=== PATIENT | male | born 1945 | race Two or more races ===

== ENCOUNTER 2018-10-06 06:03 | Day surgery (SDC) | payer OTHER ==
[~2018-10-06] VITALS: Ht 172.7 cm; Wt 106.1 kg
[~2018-10-06 06:03] MED LIST: BENADRYL25 MG PO; FISH OIL 1,0001 EAC1 PO; NIFE60ER PO; PREG150 PO; SIMV40 PO; THERA1 EACH PO; ZESTORETIC 20-251 EA PO
--- NOTE | 2018-10-06 06:35 | NUR ---
Ambulatory in Day Surgery History, Chart, Medications and Allergies reviewed before start of procedure.Lungs clear T/O to Auscultation. Patient States Post-Procedure ride home has been arranged.
--- NOTE | 2018-10-06 08:25 | NUR ---
10/06/18 0825 Dennis Kemp OLVERA CATH PLACED PER OSKAR MYERS
== END 2018-10-06 14:21 | disposition home or self-care (01) ==
LOC: ORSCMMR 06:03 → ORD 07:30 → ORSCMMR 14:21
PROVIDERS: Surgery
PROC: 0YU64JZ Supplement Left Inguinal Region with Synthetic Substitute, Percutaneous Endoscopic Approach (ICD-10-PCS; principal; 2018-10-06 07:30)
PROC: 8E0W4CZ Robotic Assisted Procedure of Trunk Region, Percutaneous Endoscopic Approach (ICD-10-PCS; principal; 2018-10-06 07:30)
DX: K40.30 Unilateral inguinal hernia, with obstruction, without gangrene, not specified as recurrent (principal); D17.6 Benign lipomatous neoplasm of spermatic cord; E66.01 Morbid (severe) obesity due to excess calories; Z68.36 Body mass index [BMI] 36.0-36.9, adult; E78.5 Hyperlipidemia, unspecified; I10 Essential (primary) hypertension; Z79.899 Other long term (current) drug therapy
CPT/HCPCS: 49650; S2900; 88304; A9270-GY; C1781; J0690; J1100; J1885; J2250; J2405; J2704; J3010; J7120

== ENCOUNTER 2024-12-12 19:06 | Inpatient (IN) | payer OTHER, MEDICARE ==
[~2024-12-12] VITALS: Ht 175.3 cm; Wt 106.2 kg
[2024-12-12] MEDS ORDERED: Acetaminophen 500 MG Tab PO ONE (19:20)
[2024-12-12 19:38] LABS: Source, Urine Clean Catch
[2024-12-12 19:41] LABS: Appearance, Urine Hazy (Clear); Bilirubin, Urine Neg (Neg); Blood, Urine 1+ (Neg); Color, Urine Yellow (P-Yellow); Glucose Qualitative, Urine 4+ (Neg); Ketones, Urine Neg (Neg); Leukocyte Esterase, Urine 3+ (Neg); Nitrite, Urine Neg (Neg); Protein, Urine 1+ (Neg); Urobilinogen, Urine NORM (Normal); pH, Urine 6.5 (5.0-8.0)
[2024-12-12 19:41] LABS: BASOPHILS PERCENT AUTO 1 % (0-2); EOSINOPHILS ABSOLUTE AUTO 0.03 K/mm3 (0.00-0.68); EOSINOPHILS PERCENT AUTO 0 % (0-6); Hematocrit 33.6 % (37.0-53.0); Hemoglobin 10.9 g/dL (13.5-17.5); IMMATURE GRAN ABSOLUTE AUTO 0.18 K/mm3 (0.00-0.10); IMMATURE GRAN PERCENT AUTO 1 % (0-1); LYMPHOCYTES ABSOLUTE AUTO 0.47 K/mm3 (0.84-5.20); LYMPHOCYTES PERCENT AUTO 3 % (21-46); MONOCYTES PERCENT AUTO 4 % (4-13); Mean Corpuscular HGB 30.4 pg (26.0-34.0); Mean Corpuscular HGB Conc 32.4 g/dL (31.5-36.5); Mean Corpuscular Volume 94 fL (80-100); Mean Platelet Volume 9.3 fL (9.1-12.4); NEUTROPHILS ABSOLUTE AUTO 16.42 K/mm3 (1.96-9.15); NEUTROPHILS PERCENT AUTO 91 % (41-73); Platelet Count 567 K/mm3 (150-400); RDW Coefficient Variation 15.2 % (11.7-14.2); RDW Standard Deviation 52.8 fL (35.1-46.3); Red Blood Cell Count 3.58 M/mm3 (4.30-5.90)
[2024-12-12 19:56] LABS: Bacteria Many /hpf; Squamous Epithelial Cells Rare /hpf (Few); White Blood Cells, Urine 50-100 /hpf (0-5)
[2024-12-12 19:59] LABS: Albumin, Blood 3.1 g/dL (3.4-5.0); Albumin/Globulin Ratio 0.8 (0.8-1.8); Bilirubin, Total 0.7 mg/dL (0.1-1.0); Bun/Creatinine Ratio 16.5 (12.0-20.0); Calcium, Blood 9.2 mg/dL (8.5-10.1); Creatinine, Blood 1.09 mg/dL (0.60-1.20); Potassium, Blood 4.3 mmol/L (3.5-5.5); Total Protein, Blood 7.1 g/dL (6.4-8.2)
[2024-12-12 20:12] LABS: Influenza A, PCR NEGATIVE (NEGATIVE); Influenza B, PCR NEGATIVE (NEGATIVE); Resp Syncytial Virus, PCR NEGATIVE (NEGATIVE); SARS-Cov-2 (COVID-19) PCR, MMC NEGATIVE (NEGATIVE)
[2024-12-12] MEDS ORDERED: CefTRIAXone Sodium 1,000 MG in NS 100 ML IV ONE (20:30)
[2024-12-12] MEDS ORDERED: OxyCODONE HCL 5 MG TAB PO PRN (21:40)
[2024-12-12] MEDS ORDERED: Acetaminophen 325 MG TABLET PO PRN (21:40)
[2024-12-12] MEDS ORDERED: Polyethylene Glycol 3350 17 gm PO PRN (21:45)
--- NOTE | 2024-12-12 22:50 | NUR ---
NEW ADMIT. PATIENT ADMITTED TO PCU8 FROM ER 11, REPORT RECEIVED FROM ER NURSE-REPORTS OF HYPOTENSIVE BLOOD PRESSURES WITH MAP <65- DOCTOR AWARE AND DOES NOT WANT TO TREAT, IN REPORT FROM ER NURSE FLUIDS WERE NOT STARTED OR ORDERED D/T PATIENTS HISTORY OF CHF. PATIENT ARRIVED TO ROOM IN [facility] AND [facility]. PATIENT IS ALERT AND ORIENTED. PATIENT TRANSFERED FROM [facility] TO HOSPITAL BED-THIS WAS A TASK FOR THE PATIENT IN RELATION TO HIS RECENT BACK SURGERY. AMIODARONE UP WITH PATIENT, NOT STARTED AND NOT TO BE STARTED UNLESS PATIENTS HEART RATE IS SUSTAINING >120. PATIENT HAS GLASSES AND DENTURES. PATIENT SETTLED INTO BED AND ADMISSION PROCESS STARTED.
[2024-12-12 23:00] VITALS: BP 97/64
[2024-12-12] MEDS ORDERED: ALEN70 PO (23:39)
[2024-12-12] MEDS ORDERED: ELIQUIS5 M3 PO (23:40)
[2024-12-12] MEDS ORDERED: THERA-D2000 UNIT PO (23:41)
[2024-12-12] MEDS ORDERED: Calcium Carbon500 MG PO (23:41)
[2024-12-12] MEDS ORDERED: DICLOFENAC SOD100 GM TOP (23:43)
[2024-12-12] MEDS ORDERED: JARDIANCE10 MG PO (23:44)
[2024-12-12] MEDS ORDERED: Flonase 0.05% N16 GM (23:45)
[2024-12-12] MEDS ORDERED: FURO20 PO (23:49)
[2024-12-12] MEDS ORDERED: LIDO700A20 TOP (23:49)
[2024-12-12] MEDS ORDERED: LISI20 PO (23:50)
[2024-12-12] MEDS ORDERED: Robaxin750 MG PO (23:51)
[2024-12-12] MEDS ORDERED: METO100ER PO (23:52)
[2024-12-12] MEDS ORDERED: MULTI-VITAMIN1 EAC2 PO (23:53)
[2024-12-12] MEDS ORDERED: PREG150 PO (23:54)
[2024-12-12] MEDS ORDERED: SPIR25 PO (23:55)
[2024-12-13] VITALS (9 sets, daily range): BP systolic 88–117; BP diastolic 60–82
[2024-12-13 03:44] LABS: Base Excess Venous 1.7 mmol/L; Bicarbonate Venous 25.2 mmol/L (24.0-30.0); PCO2 Venous 35.7 mmHg (38-42); pH Blood Venous 7.46 (7.34-7.37)
[2024-12-13 04:04] LABS: Hematocrit 31.9 % (37.0-53.0); Hemoglobin 10.5 g/dL (13.5-17.5); Mean Corpuscular HGB Conc 32.9 g/dL (31.5-36.5); Mean Corpuscular Volume 94 fL (80-100); Mean Platelet Volume 9.6 fL (9.1-12.4); Platelet Count 531 K/mm3 (150-400); RDW Coefficient Variation 15.5 % (11.7-14.2); Red Blood Cell Count 3.39 M/mm3 (4.30-5.90); White Blood Cell Count 24.77 K/mm3 (4.00-11.30)
--- NOTE | 2024-12-13 04:23 | NUR ---
SHIFT SUMMARY. PATIENT IS ALERT AND ORIENTED X4 WITH SOME CONFUSION-PATIENT IS POOR HISTORIAN. PATIENTS IS TO BRING IN HOME CPAP MACHINE AND MEDICATION LIST TODAY 12/13/24, [facility]. PATIENT IS USING THE URINAL AT BEDSIDE, CONTINENT OF BOWEL MOVEMENTS PER PATIENT. PATIENTS GAIT IS UNSTEADY R/T RECENT BACK SURGERY. PATIENT IS ABLE TO STAND AT THE SIDE OF THE BED TO USE THE URINAL, 1P ASSIST. PATIENTS HEART RATE HAS BEEN ELEVATED BETWEEN 90'S-110'S TOUCHING INTO THE 140'S BUT NOT SUSTAINING >120BPM. AMIODARONE GTT TO BE STARTED FOR HEART RATE SUSTAINING >120. PATIENT FEBRILE THIS SHIFT-TYLENOL GIVEN PER ORDERS WITH IMPROVEMENT TO TEMPERATURE. PATIENT DID NOT SLEEP MUCH THIS SHIFT. BED IS LOCKED IN THE LOWEST POSITION WITH CALL LIGHT IN REACH. CARE IS ONGOING.
--- NOTE | 2024-12-13 05:03 | NUR ---
PATIENTS HEART RATE SUSTAINING >120 TOUCHED INTO THE HIGH 170'S AMIODARONE GTT STARTED PER ORDERS. PATIENT TOLERATING WELL AT THIS TIME. BLOOD PRESSURE IS SOFT.
[2024-12-13 05:08] LABS: Albumin, Blood 2.8 g/dL (3.4-5.0); Anion Gap 10 mmol/L (3-11); Blood Urea Nitrogen 17 mg/dL (8-24); Bun/Creatinine Ratio 15.5 (12.0-20.0); CO2, Blood 24 mmol/L (21-32); Calcium, Blood 8.5 mg/dL (8.5-10.1); Chloride, Blood 102 mmol/L (98-108); Ferritin, Serum 69 ng/mL (26-388); Glomerular Filtration Rate 69 (60-); Glucose, Blood 112 mg/dL (70-99); Iron Serum 14 ug/dL (65-175); Magnesium, Blood 2.1 mg/dL (1.6-2.4); Percent Saturation 5.7 % (20.0-50.0); Phosphorus, Blood 2.8 mg/dL (2.5-4.9); Potassium, Blood 4.3 mmol/L (3.5-5.5); Sodium, Blood 132 mmol/L (136-145); Total Iron Binding Capacity 247 ug/dL (250-450)
[2024-12-13] MEDS ORDERED: Apixaban 5 MG Tab PO SCH (09:00)
[2024-12-13] MEDS ORDERED: Lactobacil 2-S.Thermo-Bifido 1 1 Cap PO SCH (09:00)
[2024-12-13] MEDS ORDERED: CYCL10 PO (09:56)
[2024-12-13] MEDS ORDERED: OXYC5 PO (09:57)
[2024-12-13] MEDS ORDERED: Vancomycin HCL 1,500 MG in NS 250 ML IV ONE (16:25)
[2024-12-13] MEDS ORDERED: Lactated Ringer's 1,000 ML IV SCH (16:30)
[2024-12-13] MEDS ORDERED: Piperacillin/Tazobactam Sod 3.375 GM in NS 100 ML IV SCH (17:00)
[2024-12-13] MEDS ORDERED: Midodrine 5 MG Tab PO SCH (18:00)
--- NOTE | 2024-12-13 18:11 | NUR ---
ATTEMPTED TO MEET WITH PT. HE WAS GETTING A NEW IV. HAD GONE HOME ALREADY AND PRIMARY RN STATED WOULD BE BENEFICIAL FOR TO BE PRESENT FOR DISCUSSION. WILL ATTEMPT TO MEET AGAIN IN THE MORNING.
--- NOTE | 2024-12-13 18:49 | NUR ---
SHIFT SUMMARY PATIENT AOX4 ABLE TO MAKE NEEDS KNOWN SHE DENIES CHEST PAIN OR SOB. HE IS TOLERATING HIS MEALS AND IS VOIDING IN THE URINAL. HE IS ON THE AMIO GTT WITH SOFT BP. THE HOSPITALIST WAS INFORMED OF THE SOFT BP TREND AND SHE SAID LONG THE MAP REMAINS GREATER THAN 65 REMAIN ON THE AMIO GTT. PATIENT HR 90- 110 BUT DOES GET TACHY WITH ACTIVITY.
[2024-12-13] MEDS ORDERED: CefTRIAXone Sodium 1,000 MG in NS 100 ML IV SCH (21:00)
[2024-12-13] MEDS ORDERED: Docusate Sodium/Senna 1 Tab PO SCH (21:00)
[2024-12-14] MEDS ORDERED: Hyaluronidase 150 UNIT/ML Vial SC ONE (02:30)
[2024-12-14 03:45] VITALS: BP 117/103
[2024-12-14 04:05] LABS: BASOPHILS ABSOLUTE AUTO 0.11 K/mm3 (0.00-0.23); BASOPHILS PERCENT AUTO 1 % (0-2); EOSINOPHILS PERCENT AUTO 2 % (0-6); Hematocrit 32.2 % (37.0-53.0); Hemoglobin 10.6 g/dL (13.5-17.5); IMMATURE GRAN ABSOLUTE AUTO 0.12 K/mm3 (0.00-0.10); IMMATURE GRAN PERCENT AUTO 1 % (0-1); LYMPHOCYTES ABSOLUTE AUTO 0.92 K/mm3 (0.84-5.20); LYMPHOCYTES PERCENT AUTO 5 % (21-46); MONOCYTES PERCENT AUTO 5 % (4-13); Mean Corpuscular HGB 30.4 pg (26.0-34.0); Mean Corpuscular HGB Conc 32.9 g/dL (31.5-36.5); Mean Corpuscular Volume 92 fL (80-100); Mean Platelet Volume 9.5 fL (9.1-12.4); NEUTROPHILS ABSOLUTE AUTO 15.55 K/mm3 (1.96-9.15); NEUTROPHILS PERCENT AUTO 86 % (41-73); Platelet Count 459 K/mm3 (150-400); RDW Coefficient Variation 15.4 % (11.7-14.2); RDW Standard Deviation 52.1 fL (35.1-46.3); Red Blood Cell Count 3.49 M/mm3 (4.30-5.90)
[2024-12-14 04:27] LABS: Bun/Creatinine Ratio 15.8 (12.0-20.0); Calcium, Blood 8.4 mg/dL (8.5-10.1); Creatinine, Blood 0.95 mg/dL (0.60-1.20); Potassium, Blood 3.8 mmol/L (3.5-5.5)
[2024-12-14] MEDS ORDERED: Vancomycin HCL 1,000 MG in NS 250 ML IV SCH (05:00)
--- NOTE | 2024-12-14 05:01 | NUR ---
SHIFT SUMMARY THIS RN ASSUMED CARE OF PATIENT AT 1900. PT A&O X4. ABLE TO MAKE NEEDS KNOWN. AFIB WITH HR 80-90'S DURING THIS SHIFT. INCREASED HR WITH EXERTION. MEDICATED PER EMAR FOR PAIN. USING URINAL IN BED INDEPENDENTLY. AMIO NADINE KONG MD AND PHARMACY NOTIFIED. PT GIVEN SQ AMPHADASE INJECTIONS PER EMAR. TENDER WITH PALPATION. MARKED WITH PEN. IV REMOVED. AMIO GTT FINISHING INFUSION AT THIS TIME. LR INFUSING PER EMAR. OTHER VSS. BED IN LOWEST POSITION AND CALL LIGHT WITHIN REACH. THIS RN WILL REPORT TO ONCOMING DAYSHIFT RN.
[2024-12-14 07:47] VITALS: BP 116/80
[2024-12-14] MEDS ORDERED: Calcium Carbonate 500 MG Tab Chew PO PRN (09:55)
[2024-12-14] MEDS ORDERED: Metoprolol Succinate 50 MG TABCR PO SCH ×2 (10:00)
[2024-12-14] MEDS ORDERED: Cyclobenzaprine HCl 10 MG Tab PO PRN (11:50)
[2024-12-14 12:02] VITALS: BP 99/74
[2024-12-14 16:52] VITALS: BP 120/82
--- NOTE | 2024-12-14 17:57 | NUR ---
SHIFT SUMMARY PATIENT AOX4 ABLE TO MAKE NEEDS KNOWN. DENIES CP OR SOB. HE IS TOLERATING HIS MEALS AND IS ABLE TO WALK TO THE BATHROOM. HE IS VOIDING IN THE URINAL. HIS HR IS CONTROLLED 90-100s. THE AMIO GTT ENDED PREVIOUS SHIFT AND PO METOPROLOL WAS STARTED TODAY. HIS VITALS ARE STABLE.
[2024-12-14 19:56] VITALS: BP 123/83
[2024-12-14] MEDS ORDERED: Cholecalciferol 1000 Unit Tablet (=25MCG) PO SCH (21:00)
--- NOTE | 2024-12-15 00:03 | NUR ---
NURSE NOTE PROCESSING SUPERVISOR ALERTED THIS RN THAT PT HAD A SHORT RUN OF AFIB RVR. PATIENT IS CURRENTLY ASLEEP AND CALL LIGHT IS WITHIN REACH.
[2024-12-15 00:16] VITALS: BP 106/74
[2024-12-15 04:05] LABS: BASOPHILS ABSOLUTE AUTO 0.11 K/mm3 (0.00-0.23); BASOPHILS PERCENT AUTO 1 % (0-2); EOSINOPHILS ABSOLUTE AUTO 0.82 K/mm3 (0.00-0.68); EOSINOPHILS PERCENT AUTO 7 % (0-6); Hematocrit 34.1 % (37.0-53.0); Hemoglobin 10.9 g/dL (13.5-17.5); IMMATURE GRAN ABSOLUTE AUTO 0.03 K/mm3 (0.00-0.10); IMMATURE GRAN PERCENT AUTO 0 % (0-1); LYMPHOCYTES ABSOLUTE AUTO 1.03 K/mm3 (0.84-5.20); LYMPHOCYTES PERCENT AUTO 9 % (21-46); MONOCYTES ABSOLUTE AUTO 0.97 K/mm3 (0.16-1.47); MONOCYTES PERCENT AUTO 9 % (4-13); Mean Corpuscular HGB 29.8 pg (26.0-34.0); Mean Corpuscular Volume 93 fL (80-100); NEUTROPHILS ABSOLUTE AUTO 8.11 K/mm3 (1.96-9.15); NEUTROPHILS PERCENT AUTO 73 % (41-73); Platelet Count 440 K/mm3 (150-400); RDW Coefficient Variation 15.3 % (11.7-14.2); RDW Standard Deviation 53.1 fL (35.1-46.3); Red Blood Cell Count 3.66 M/mm3 (4.30-5.90); White Blood Cell Count 11.07 K/mm3 (4.00-11.30)
[2024-12-15 04:24] LABS: Vancomycin, Trough 13.9 ug/mL (5.0-10.0)
[2024-12-15 04:49] LABS: Bun/Creatinine Ratio 12.8 (12.0-20.0); Calcium, Blood 8.5 mg/dL (8.5-10.1); Creatinine, Blood 0.94 mg/dL (0.60-1.20); Potassium, Blood 3.9 mmol/L (3.5-5.5)
--- NOTE | 2024-12-15 06:18 | NUR ---
NOC SHIFT SUMMARY PT IS A/O X4 ABLE TO MAKE NEEDS KNOWN, USES CALL LIGHT. DENIES CHEST PAIN OR PRESSURE. PT UP TO CHAIR THIS MORNING 1 PERSON TRANSFER W/ FWW AND GB. USES URINAL TO VOID. PT WAS ABLE TO REST MOST OF THE NIGHT IN BETWEEN CARES. PT DID HAVE A FEW RUNS OF RVR DURING THE NIGHT. PT HOWEVER WAS ASYMPTOMATIC WITH EACH ONE, AND IT DID NOT SUSTAIN. DENOES SOB, ON ROOM AIR, SATTING 96% AND ABOVE. IN NO ACUTE DISTRESS, DENIES NEEDS AT THIS TIME. CALL LIGHT IN REACH, WILL REPORT TO ONCOMING RN.
[2024-12-15 07:56] VITALS: BP 128/94
[2024-12-15] MEDS ORDERED: Multivitamins 1 Tab PO SCH (09:00)
--- NOTE | 2024-12-15 10:48 | NUR ---
PT IS A&Ox4 AND ABLE TO MAKE NEEDS KNOWN. HE IS ON RA W/O2 SATS>90%. HE IS x1 ASSIST W/WALKER TO AMBULATE. IS @ BEDSIDE AND GETTING HIS BELONGINGS TOGETHER TO DISCHARGE. NO NEEDS OR CONCERNS NOTED @ THIS TIME. BED IN LOW POSITION, CALL LIGHT AND PERSONAL BELONGINGS IN REACH.
[2024-12-15] MEDS ORDERED: Acetaminophen650 M1 PO (12:55)
[2024-12-15] MEDS ORDERED: MIRALAX17 GM PO (12:55)
[2024-12-15] MEDS ORDERED: AMOCLA875 PO (12:56)
[2024-12-15] MEDS ORDERED: VISBIOME 112.51 EACH PO (12:56)
[2024-12-15 13:03] VITALS: BP 138/99
--- NOTE | 2024-12-15 13:20 | NUR ---
PT DISCHARGED HOME W/. WAS TAKEN OUT BY WC WITH ALL PERSONAL BELONGINGS.
== END 2024-12-15 13:30 | disposition home or self-care (01) | DRG 308 ==
LOC: ER 19:06 → PCU 21:39
PROVIDERS: Emergency Medicine; Family Medicine; ADMIT Internal Medicine
DX: I48.91 Unspecified atrial fibrillation (principal); G92.8 Other toxic encephalopathy; G93.41 Metabolic encephalopathy; E87.1 Hypo-osmolality and hyponatremia; E87.20 Acidosis, unspecified; N39.0 Urinary tract infection, site not specified; D72.829 Elevated white blood cell count, unspecified; I48.92 Unspecified atrial flutter; I95.9 Hypotension, unspecified; E86.0 Dehydration; I35.0 Nonrheumatic aortic (valve) stenosis; G89.29 Other chronic pain; M54.50 Low back pain, unspecified; D64.9 Anemia, unspecified; I50.9 Heart failure, unspecified; D75.839 Thrombocytosis, unspecified; G47.33 Obstructive sleep apnea (adult) (pediatric); I11.0 Hypertensive heart disease with heart failure; Z96.653 Presence of artificial knee joint, bilateral; Z98.890 Other specified postprocedural states
CPT/HCPCS: 0241U; 36415; 71045; 80048; 80053; 80069; 80202; 81001; 81003; 82728; 82803; 83540; 83550; 83605; 83735; 83880; 84443; 85025; 85027; 87040; 93005; 93010; 93306; 94762; 96374; 97110; 97162; 97530; 99285-25; A9270; J0282; J0696; J2543; J3370; J3470; J7050; J7060; J7120

== ENCOUNTER → 2025-01-08 | Outpatient (CLI) | payer MEDICARE, OTHER ==
[~2025-01-08] MED LIST changes: +ALEN70 PO; +AMOCLA875 PO; +Acetaminophen650 M1 PO; +CYCL10 PO; +Calcium Carbon500 MG PO; +DICLOFENAC SOD100 GM TOP; +ELIQUIS5 M3 PO; +FURO20 PO; +Flonase 0.05% N16 GM; +JARDIANCE10 MG PO; +LIDO700A20 TOP; +LISI20 PO; +METO100ER PO; +MIRALAX17 GM PO; +MULTI-VITAMIN1 EAC2 PO; +OXYC5 PO; +Robaxin750 MG PO; +SPIR25 PO; +THERA-D2000 UNIT PO; +VISBIOME 112.51 EACH PO
== END ==
LOC: LAB 11:15 → LAB SHORT 11:15
DX: R35.0 Frequency of micturition (principal)
CPT/HCPCS: 87077; 87086; 87147; 87186

== ENCOUNTER → 2025-01-22 | Outpatient (CLI) | payer MEDICARE, OTHER ==
[2025-01-22 10:04] LABS: BASOPHILS ABSOLUTE AUTO 0.07 K/mm3 (0.00-0.23); BASOPHILS PERCENT AUTO 0 % (0-2); EOSINOPHILS ABSOLUTE AUTO 0.00 K/mm3 (0.00-0.68); EOSINOPHILS PERCENT AUTO 0 % (0-6); Hematocrit 33.3 % (37.0-53.0); Hemoglobin 10.3 g/dL (13.5-17.5); IMMATURE GRAN ABSOLUTE AUTO 0.06 K/mm3 (0.00-0.10); IMMATURE GRAN PERCENT AUTO 0 % (0-1); LYMPHOCYTES ABSOLUTE AUTO 0.41 K/mm3 (0.84-5.20); LYMPHOCYTES PERCENT AUTO 3 % (21-46); MONOCYTES ABSOLUTE AUTO 0.58 K/mm3 (0.16-1.47); MONOCYTES PERCENT AUTO 4 % (4-13); Mean Corpuscular HGB Conc 30.9 g/dL (31.5-36.5); Mean Corpuscular Volume 84 fL (80-100); NEUTROPHILS ABSOLUTE AUTO 14.44 K/mm3 (1.96-9.15); NEUTROPHILS PERCENT AUTO 93 % (41-73); NRBC ABSOLUTE 0.00 K/mm3 (0.00-0.02); NRBC Auto 0.0 /100 WBC (0.0-0.2); Platelet Count 301 K/mm3 (150-400); RDW Coefficient Variation 18.6 % (11.7-14.2); RDW Standard Deviation 56.7 fL (35.1-46.3)
[2025-01-22 10:15] LABS: Alanine Aminotransfer (ALT/SGP 42.0 U/L (12-78); Albumin, Blood 2.9 g/dL (3.4-5.0); Albumin/Globulin Ratio 0.7 (0.8-1.8); Anion Gap 11.0 mmol/L (3-11); Aspartate Aminotrans (AST/SGOT 27.0 U/L (12-37); Bilirubin, Total 0.8 mg/dL (0.1-1.0); Blood Urea Nitrogen 12.0 mg/dL (8-24); CO2, Blood 25.0 mmol/L (21-32); Calcium, Blood 8.9 mg/dL (8.5-10.1); Chloride, Blood 104.0 mmol/L (98-108); Creatinine, Blood 1.4 mg/dL (0.60-1.20); Globulin, Blood 4.0 g/dL (2.2-4.0); Glucose, Blood 159.0 mg/dL (70-99); Potassium, Blood 4.2 mmol/L (3.5-5.5); Sodium, Blood 136.0 mmol/L (136-145); Total Protein, Blood 6.9 g/dL (6.4-8.2)
== END | disposition home or self-care (01) ==
LOC: LAB SHORT 10:00 → LAB 10:00
PROVIDERS: Physician Assistant Medical
DX: R55 Syncope and collapse (principal)
CPT/HCPCS: 80053; 84484; 85025

== ENCOUNTER → 2025-02-08 | Outpatient (CLI) | payer MEDICARE, OTHER ==
[2025-02-08 17:42] LABS: BASOPHILS ABSOLUTE AUTO 0.08 K/mm3 (0.00-0.23); BASOPHILS PERCENT AUTO 1 % (0-2); EOSINOPHILS ABSOLUTE AUTO 0.16 K/mm3 (0.00-0.68); EOSINOPHILS PERCENT AUTO 2 % (0-6); Hematocrit 33.6 % (37.0-53.0); Hemoglobin 10.2 g/dL (13.5-17.5); IMMATURE GRAN ABSOLUTE AUTO 0.02 K/mm3 (0.00-0.10); IMMATURE GRAN PERCENT AUTO 0 % (0-1); LYMPHOCYTES ABSOLUTE AUTO 1.37 K/mm3 (0.84-5.20); LYMPHOCYTES PERCENT AUTO 20 % (21-46); MONOCYTES ABSOLUTE AUTO 0.93 K/mm3 (0.16-1.47); MONOCYTES PERCENT AUTO 13 % (4-13); Mean Corpuscular HGB Conc 30.4 g/dL (31.5-36.5); Mean Corpuscular Volume 81 fL (80-100); NEUTROPHILS ABSOLUTE AUTO 4.39 K/mm3 (1.96-9.15); NEUTROPHILS PERCENT AUTO 63 % (41-73); NRBC ABSOLUTE 0.00 K/mm3 (0.00-0.02); NRBC Auto 0.0 /100 WBC (0.0-0.2); Platelet Count 328 K/mm3 (150-400); RDW Coefficient Variation 18.5 % (11.7-14.2); RDW Standard Deviation 54.3 fL (35.1-46.3)
[2025-02-08 17:53] LABS: Alanine Aminotransfer (ALT/SGP 33.0 U/L (12-78); Albumin, Blood 3.0 g/dL (3.4-5.0); Albumin/Globulin Ratio 0.8 (0.8-1.8); Anion Gap 9.0 mmol/L (3-11); Aspartate Aminotrans (AST/SGOT 24.0 U/L (12-37); Bilirubin, Total 0.5 mg/dL (0.1-1.0); Blood Urea Nitrogen 11.0 mg/dL (8-24); CO2, Blood 30.0 mmol/L (21-32); Calcium, Blood 8.6 mg/dL (8.5-10.1); Chloride, Blood 106.0 mmol/L (98-108); Creatinine, Blood 1.04 mg/dL (0.60-1.20); Globulin, Blood 3.9 g/dL (2.2-4.0); Glucose, Blood 95.0 mg/dL (70-99); Magnesium, Blood 2.1 mg/dL (1.6-2.4); Potassium, Blood 4.4 mmol/L (3.5-5.5); Sodium, Blood 141.0 mmol/L (136-145); Total Protein, Blood 6.9 g/dL (6.4-8.2)
== END | disposition home or self-care (01) ==
LOC: LAB 17:37 → LAB SHORT 17:37
PROVIDERS: Emergency Medicine
DX: I48.91 Unspecified atrial fibrillation (principal); R30.0 Dysuria; Z87.440 Personal history of urinary (tract) infections
CPT/HCPCS: 80053; 83735; 85025; 87077; 87086; 87186

== ENCOUNTER → 2025-02-08 | Outpatient (CLI) | payer MEDICARE, OTHER | END | disposition home or self-care (01) | LOC: LAB 18:55 → LAB SHORT 18:55 | DX: R30.0 Dysuria (principal); Z87.440 Personal history of urinary (tract) infections | CPT/HCPCS: 87077; 87086; 87186 ==